=== PATIENT | female | born 1955 | race Caucasian/White ===

== ENCOUNTER 2022-02-14 11:00 | Day surgery (SDC) | payer OTHER ==
[2022-02-11 15:04] LABS: Absolute Lymphocytes (CBC) 1.4 K/uL (0.7-4.9); Hematocrit 38.6 % (36.0-45.0); Lymphocytes % 32.8 % (15.3-44.8); MCV 95.6 fL (80-100); MPV 8.1 fL (7.6-11.3); RBC Red Blood Cell Count 4.04 M/uL (3.86-4.86)
[2022-02-11 15:08] LABS: Protime INR 1.1
[2022-02-11 15:15] LABS: Potassium 3.6 mmol/L (3.5-5.1)
--- NOTE | 2022-02-12 14:13 | EKG ---
Test Date: 2022-02-11 Test Time: 14:24:20 Yard Inspector: JOSEFINA MEASUREMENT RESULTS: Intervals: Rate: 59 LA: 162 QRSD: 90 QT: 400 QTc: 396 Gray: P: 10 LA: 162 QRS: 0 T: 22 INTERPRETIVE STATEMENTS: Sinus bradycardia Otherwise normal ECG No previous ECG available for comparison Electronically Signed On 02-12-22 14:12:32 [employer] by Jeremy Zaidi
[~2022-02-14 11:00] MED LIST: ATROPINE SULF 1 MG/10 ML SYR IV ONE; FENTANYL CITR 100 MCG/2 ML ONE; HEPA 1000U/500MLS 2,000 UNIT/1,000 ML BAG IV ONE; HEPARIN 10,000 UNIT/10 ML VIAL IV ONE; HEPARIN 5000 UNIT/ML 1 ML VIAL ONE; LIDOCAINE 1% 20 ML MDV ONE; MIDAZOLAM HCL 2 MG/2 ML INJ ONE; NITROGLYCERIN 100 MCG/ML SYR (for cath lab use only) IV ONE; NITROGLYCERIN/D5W 25 MG/250 ML BTL IV ONE; VERAPAMIL HCL 10 MG/4 ML VIAL IV ONE
[2022-02-14] MEDS ORDERED: NA CHLORIDE 0.9% 500 ML ONE (11:17)
[2022-02-14 11:25] VITALS: TEMP 97.8
[2022-02-14 13:54] VITALS: O2SAT 100
[2022-02-14 14:06] VITALS: BP 124/64
--- NOTE | 2022-02-14 23:33 | OP ---
Date of Procedure: 02/14/2022 Surgeon: JEANNIE MORALES Procedures Performed: 1.Selective coronary angiogram. 2.Left heart catheterization. Indication: Unstable angina. Access: Right radial artery 6-[place] closed with TR band. Complications: None. Estimated Blood Loss: Bleeding less than 10 mL. Anesthesia: Total sedation time was 20 minutes, used fentanyl and Versed. Description Of Procedure: After risks, benefits, and alternatives were explained, the patient agreed to the procedure and signed informed consent. Patient was brought into the cardiac catheterization laboratory and prepped and draped in usual sterile fashion. Then I accessed right radial artery usin g pediatric micropuncture kit, placed 6-[place] Slender sheath and took a 5-[place] African [place] 4 catheter in to the aortic root, engaged the left main, then exchanged for a 6-[place] JR4 catheter, engaged the RC A and then the catheter was pushed over the wire into the LV, measured the LVEDP and pullback did not record any gradient. I then removed the catheter and the sheath and placed TR band with good hemost asis. Findings: 1.Left main: Large and normal. 2.LAD: Large and normal. Normal diagonal branches. 3.Left circumflex is of moderate size and normal. Normal OM branches. 4.RCA is dominant and normal. 5.Elevated LVEDP at 14 mmHg. Conclusion: 1.Normal coronary arteries. 2.Mildly elevated LVEDP. Plan: Medical management. /PASHA Voice ID: [id number] Report ID: [id number]
== END 2022-02-14 14:20 | disposition home or self-care (01) ==
LOC: CCL 11:00
PROVIDERS: ATTEND Internal Medicine
DX: I20.0 Unstable angina (principal); I70.212 Atherosclerosis of native arteries of extremities with intermittent claudication, left leg; I10 Essential (primary) hypertension; R00.1 Bradycardia, unspecified; R09.89 Other specified symptoms and signs involving the circulatory and respiratory systems; F17.210 Nicotine dependence, cigarettes, uncomplicated; Z82.49 Family history of ischemic heart disease and other diseases of the circulatory system
CPT/HCPCS: 36415; 80048; 85025; 85610; 85730; 93005; 93458; C1893; J0461; J1644; J2250; J3010; J7040; Q9966